=== PATIENT | female | born 1975 | race Caucasian/White ===

== ENCOUNTER 2017-05-21 13:20 | Emergency (ER) | payer OTHER ==
[2017-05-21 13:21] VITALS: BP 135/77; PULSE 95; RESP 16; TEMP 98.3; O2SAT 99
--- NOTE | 2017-05-21 13:36 | PD ---
Physical Exam Date Seen by Provider: May 21, 2017 Time Seen by Provider: 13:33 Data Data Last Documented VS Vital Signs Date Time Temp Pulse Resp B/P Pulse Ox O2 Delivery O2 Flow Rate FiO2 05/21/17 13:21 98.3 95 16 135/77 99 MDM Supervised Visit with BRANDIE: No Narrative Course 41 YO F with complaint of lower abdominal pressure x 3 days. Endorses feeling of incomplete bladder emptying. Denies dysuria, increased urgency. Denies vaginal discharge. LMP April 29. Vitals reviewed. Patient seen in triage, awaiting bed placement. Kia Cloud May 21, 2017 13:36
[2017-05-21 14:17] LABS: BACTERIA, URINE MANY /hpf; BLOOD, URINE MOD (NEG); GLUCOSE,URINE NEG (NEG); KETONE, URINE NEG (NEG); MUCUS URINE FEW /lpf (OCC); NITRITE,URINE POS (NEG); SQUAMOUS EPITHELIAL CELL URINE 5 /hpf (0-5); TRANSITIONAL EPI CELLS, URINE 1 /hpf; URINE COLOR YELLOW (YELLW/STRAW)
[2017-05-21 14:18] LABS: COMMENT (UR) CULTURE INDICATED; CULTURE IF INDICATED CULTURE INDICATED
--- NOTE | 2017-05-21 14:18 | PD ---
HPI Chief Complaint: Complaint Time Seen by Provider: 14:06 Travel History International Travel<30 days: No Contact w/Intl Traveler<30days: No Traveled to known affect area: No History of Present Illness HPI 41-year-old female visiting from [place] presents to emergency Department with 3 day history of urinary symptoms consisting of a discomfort after urinating, frequency and urgency. She denies abdominal pain. No fever, chills, nausea, vomiting, she denies vaginal symptoms. She is monogamous with her who is with her. He has no known drug allergies. PFS Past Medical History ?: Unknown LMP: 04/29/17 Social History Alcohol Use: Yes Tobacco Use: No Substance Use: No Allergies-Medications (Allergen,Severity, Reaction): Coded Allergies: No Known Allergies (Unverified , 05/21/17) Reported Meds & Prescriptions Reported Meds & Active Scripts Active Diflucan (Fluconazole) 150 Mg Tab 150 Mg PO ONCE Cephalexin 500 Mg Cap 500 Mg PO Q8H Review of Systems Except as stated in HPI: all other systems reviewed are Neg General / Constitutional: No: Fever Eyes: No: Visual changes HENT: No: Headaches Cardiovascular: No: Chest Pain or Discomfort Respiratory: No: Shortness of Breath Gastrointestinal: No: Abdominal Pain Genitourinary: Positive: Urgency, Frequency, Dysuria, No: Pelvic Pain, Flank Pain, Discharge, Vaginal Bleeding (see history present illness) Musculoskeletal: No: Pain Skin: No Rash Neurologic: No: Weakness Psychiatric: No: Depression Endocrine: No: Polydipsia Hematologic/Lymphatic: No: Easy Bruising Physical Exam Narrative GENERAL: Patient appears no acute distress. SKIN: Warm and dry. Normal color. Normal turgor. No rash. HEAD: Atraumatic. Normocephalic. EYES: Pupils equal and round. No scleral icterus. No injection or drainage. ENT: No nasal bleeding or discharge. Mucous membranes pink and moist. NECK: Trachea midline. No JVD. CARDIOVASCULAR: Regular rate and rhythm. RESPIRATORY: No accessory muscle use. Clear to auscultation. Breath sounds equal bilaterally. GASTROINTESTINAL: Abdomen soft, non-tender, nondistended. Hepatic and splenic margins not palpable. No CVA tenderness. MUSCULOSKELETAL: Extremities without clubbing, cyanosis, or edema. No obvious deformities. NEUROLOGICAL: Awake and alert. No obvious cranial nerve deficits. Motor grossly within normal limits. Five out of 5 muscle strength in the arms and legs. Normal speech. PSYCHIATRIC: Appropriate mood and affect; insight and judgment normal. Data Data Last Documented VS Vital Signs Date Time Temp Pulse Resp B/P Pulse Ox O2 Delivery O2 Flow Rate FiO2 05/21/17 13:21 98.3 95 16 135/77 99 Orders Urinalysis - C+S If Indicated (05/21/17 13:36) Ed Urine Pregnancytest Poc (05/21/17 13:36) Urine Culture (05/21/17 14:01) Cephalexin (Keflex) (05/21/17 14:45) Labs Laboratory Tests Test 05/21/17 14:01 Urine Color YELLOW Urine Turbidity HAZY Urine pH 6.0 Urine Specific [place] 1.024 Urine Protein 30 mg/dL Urine Glucose (UA) NEG mg/dL Urine Ketones NEG mg/dL Urine Occult Blood MOD Urine Nitrite POS Urine Bilirubin NEG Urine Urobilinogen 2.0 MG/DL Urine Leukocyte Esterase LARGE Urine RBC 94 /hpf Urine WBC /hpf Urine WBC Clumps FEW Urine Squamous Epithelial 5 /hpf Cells Urine Transitional Epithelial 1 /hpf Cells Urine Bacteria MANY /hpf Urine Mucus FEW /lpf Microscopic Urinalysis Comment CULTURE INDICATED MDM Medical Decision Making Medical Screen Exam Complete: Yes Emergency Medical Condition: Yes Differential Diagnosis Urinary frequency. Urinary urgency. Urinary tract infection. Narrative Course Patient is medically stable at time of exam. Urinalysis is sent to the lab. Urine test is negative. Urinalysis very suggestive for urinary tract infection with positive nitrites and large amount leukocyte esterase. Urine culture is pending. Patient is treated with Keflex 500 mg 3 times a day 7 days. Patient also given Diflucan 150 mg to take if yeast symptoms develop. Patient is to follow-up with her primary care physician in the next week if symptoms do not improve. Patient can return here with worsening symptoms as necessary. Diagnosis Primary Impression: Urinary tract infection Qualified Code: N30.01 - Acute cystitis with hematuria Patient Instructions: Dysuria (ED), General Instructions Additional Instructions: Urine test is negative. Urinalysis very suggestive for urinary tract infection with positive nitrites and large amount leukocyte esterase. Urine culture is pending. Patient is treated with Keflex 500 mg 3 times a day 7 days. Patient also given Diflucan 150 mg to take if yeast symptoms develop. Patient is to follow-up with her primary care physician in the next week if symptoms do not improve. Patient can return here with worsening symptoms as necessary. Med/Other Pt SpecificInfo: Prescription(s) given Scripts Fluconazole (Diflucan)150 Mg [id number] Mg PO ONCE #1 TAB Ref 1 Prov:Sarah Landeros MD 05/21/17 Cephalexin 500 Mg [id number] Mg PO Q8H #21 CAP Prov:Sarah Landeros MD 05/21/17 Disposition: 01 DISCHARGE HOME Condition: Stable Shola Naylor May 21, 2017 14:18
[2017-05-21] MEDS ORDERED: DIFL150T PO (14:39)
[2017-05-21] MEDS ORDERED: CEPH500C PO (14:39)
[2017-05-21] MEDS ORDERED: CEPHALEXIN MONOHYDRATE 500 MG CAP PO ONE (14:45)
== END 2017-05-21 15:03 | disposition home or self-care (01) ==
LOC: NEPD 13:20
DX: N39.0 Urinary tract infection, site not specified (principal); B96.20 Unspecified Escherichia coli [E. coli] as the cause of diseases classified elsewhere; Z79.899 Other long term (current) drug therapy
CPT/HCPCS: 81001; 84703; 87077; 87086; 87186; 99284